=== PATIENT | female | born 1950 | race Asian ===

== ENCOUNTER 2020-08-12 13:41 | Observation (INO) | payer OTHER ==
[2020-08-12] MEDS ORDERED: SODIUM CHLORIDE 0.9% 1000 ML INFUS.BAG IV ONE (14:52)
[2020-08-12] MEDS ORDERED: ONDANSETRON 4 MG/2 ML VIAL IVPUSH ONE (14:54)
[2020-08-12] MEDS ORDERED: ACETAMINOPHEN 1000 MG/100 ML VIAL (NON FORMULARY) IVPB ONE (14:54)
[2020-08-12 15:28] LABS: VENOUS BASE EXCESS -1.7 mmol/L (-2-2); VENOUS PCO2 52.8 mmHg (38-52); VENOUS PH 7.302 (7.310-7.410)
[2020-08-12] MEDS ORDERED: ONDANSETRON 4 MG/2 ML VIAL ONE (15:31)
[2020-08-12] MEDS ORDERED: ACETAMINOPHEN INJECTION 100 ML IVPB ONE (15:31)
[2020-08-12 15:32] LABS: BASO % 0.7 % (0-2.0); EOS % 3.1 % (0-4.5); HEMATOCRIT 36.8 % (32.4-45.2); MCH 25.3 pg (25.7-33.7); MCHC 32.6 g/dl (32.0-36.0); MEAN CELL VOLUME 77.6 fl (80-96); MEAN PLT VOLUME 9.7 fl (7.5-11.1); MONO % 5.6 % (3.8-10.2); NEUT % 61.6 % (42.8-82.8); PLATELET COUNT 250 K/MM3 (134-434); RBC 4.75 M/mm3 (3.60-5.2); RDW 14.7 % (11.6-15.6); WHITE BLOOD COUNT 8.8 K/mm3 (4.0-10.0)
[2020-08-12 15:39] LABS: INR 0.96 (0.83-1.09); PROTHROMBIN TIME (PATIENT) 11.8 SEC (9.7-13.0)
[2020-08-12 15:41] LABS: ACTIVATED PTT 31.9 SECONDS (25.2-36.5)
[2020-08-12 15:51] LABS: CHLORIDE 104 mmol/L (98-107); SODIUM 135 mmol/L (136-145)
[2020-08-12 15:53] LABS: ALBUMIN 3.3 g/dl (3.4-5.0); ANION GAP 6 MMOL/L (8-16); BLOOD UREA NITROGEN 41.2 mg/dL (7-18); CALCIUM 8.4 mg/dL (8.5-10.1); CO2 26 mmol/L (21-32); GLUCOSE,RANDOM 56 mg/dL (74-106)
[2020-08-12 15:56] LABS: SGOT/AST 55 U/L (15-37); SGPT/ALT 21 U/L (13-61)
[2020-08-12 15:57] LABS: CREATININE 1.9 mg/dL (0.55-1.3)
[2020-08-12 15:58] LABS: BILIRUBIN,TOTAL 0.5 mg/dL (0.2-1); TOT PROT 7.6 g/dl (6.4-8.2)
[2020-08-12 15:59] LABS: ALK PHOS 87 U/L (45-117)
[2020-08-12 16:00] LABS: LDH 674 U/L (84-246)
[2020-08-12] MEDS ORDERED: DEXAMETHASONE SOD PHOSPHATE 4 MG/1 ML VIAL IVPUSH ONE (16:27)
[2020-08-12 16:34] LABS: CALCIUM 8.8 mg/dL (8.5-10.1)
[2020-08-12 16:35] LABS: BLOOD UREA NITROGEN 41.2 mg/dL (7-18)
[2020-08-12 16:38] LABS: CREATININE 1.8 mg/dL (0.55-1.3)
[2020-08-12] MEDS ORDERED: DEXAMETHASONE SOD PHOSPHATE 10 MG/1 ML VIAL ONE (16:46)
[2020-08-12 18:55] LABS: EPI CELLS 3 /uL (0-25.1); HYALINE CASTS 0 /uL (0-3.1); PH,URINE 5.5 (5.0-8.0); URINE APPEARANCE CLEAR; URINE BACTERIA 10 /uL (0-1359); URINE BILIRUBIN NEGATIVE (NEGATIVE); URINE COLOR YELLOW; URINE GLUCOSE (UA) NEGATIVE (NEGATIVE); URINE KETONE NEGATIVE (NEGATIVE); URINE LEUK ESTERASE NEGATIVE (NEGATIVE); URINE NITRITE NEGATIVE (NEGATIVE); URINE PROTEIN 2+ (NEGATIVE); URINE RBC 2 /uL (0-23.9); URINE UROBILINOGEN 0.2 mg/dL (0.2-1.0); URINE WBC 4 /uL (0-25.8)
[2020-08-12] MEDS ORDERED: TACROLIMUS 0.5 MG CAPSULE PO ONE (23:20)
[2020-08-12] MEDS ORDERED: SODIUM CHLORIDE 1,000 ML IV SCH (23:45)
[2020-08-13] MEDS: POLYETHYLENE GLYCOL 3350 119 GM BTL PO SCH ×3 (04:08→22:59)
[2020-08-13] MEDS ORDERED: ONDANSETRON 4 MG/2 ML VIAL IVPUSH PRN (04:46)
[2020-08-13] MEDS ORDERED: ASCORBIC ACID 500 MG TABLET (FP) ONE (08:05)
[2020-08-13] MEDS ORDERED: DEXAMETHASONE SOD PHOSPHATE 10 MG/1 ML VIAL ONE (08:05)
[2020-08-13] MEDS ORDERED: amLODIPine BESYLATE 5 MG TABLET (FP) ONE (08:06)
[2020-08-13] MEDS ORDERED: ZINC SULFATE 220 MG CAPSULE (FP) ONE (08:06)
[2020-08-13] MEDS ORDERED: ENOXAPARIN NA (PORCINE) 40 MG/0.4 ML DISP.SYRIN SQ ONE (08:07)
[2020-08-13 08:18] LABS: ALBUMIN 3.4 g/dl (3.4-5.0); CALCIUM 8.4 mg/dL (8.5-10.1)
[2020-08-13 08:19] LABS: BLOOD UREA NITROGEN 45.1 mg/dL (7-18); MAGNESIUM 2.5 mg/dL (1.8-2.4)
[2020-08-13 08:22] LABS: BASO % 0.1 % (0-2.0); EOS % 0.1 % (0-4.5); HEMATOCRIT 35.5 % (32.4-45.2); HEMOGLOBIN 11.6 GM/dL (10.7-15.3); LYMPH % 10.8 % (8-40); MCH 25.4 pg (25.7-33.7); MCHC 32.6 g/dl (32.0-36.0); MEAN CELL VOLUME 77.7 fl (80-96); MEAN PLT VOLUME 10.1 fl (7.5-11.1); PHOSPHOROUS 4.7 mg/dL (2.5-4.9); PLATELET COUNT 212 K/MM3 (134-434); RBC 4.57 M/mm3 (3.60-5.2); RDW 14.6 % (11.6-15.6); WHITE BLOOD COUNT 9.4 K/mm3 (4.0-10.0)
[2020-08-13 08:23] LABS: BILIRUBIN,TOTAL 0.4 mg/dL (0.2-1); TOT PROT 7.2 g/dl (6.4-8.2)
[2020-08-13] MEDS: INSULIN SLIDING SCALE (NOVOLOG) 1 VIAL SQ SCH ×4 (08:36→23:00)
[2020-08-13] MEDS: ENOXAPARIN NA (PORCINE) 40 MG/0.4 ML DISP.SYRIN SQ SCH (09:49)
[2020-08-13] MEDS: amLODIPine BESYLATE 5 MG TABLET (FP) PO SCH (09:50)
[2020-08-13] MEDS: ZINC SULFATE 220 MG CAPSULE (FP) PO SCH (09:50)
[2020-08-13] MEDS: ASCORBIC ACID 500 MG TABLET (FP) PO SCH (09:50)
[2020-08-13] MEDS ORDERED: amLODIPine BESYLATE 5 MG TABLET (FP) PO SCH (10:00)
[2020-08-13] MEDS ORDERED: DEXAMETHASONE SOD PHOSPHATE 4 MG/1 ML VIAL IVPUSH SCH (10:00)
[2020-08-13] MEDS ORDERED: TACROLIMUS 0.5 MG CAPSULE PO SCH ×2 (10:00)
[2020-08-13] MEDS ORDERED: CHOLECALCIFEROL (VIT D3) 400 UNIT (10 MCG) TABLET PO SCH (10:00)
[2020-08-13] MEDS ORDERED: DEXAMETHASONE SOD PHOSPHATE 20 MG/5 ML VIAL IVPB SCH (10:00)
[2020-08-13] MEDS ORDERED: FLUDROCORTISONE ACETATE 0.1 MG TABLET (FP) PO SCH (10:00)
[2020-08-13] MEDS ORDERED: ALBUTEROL SO4 HFA INHALER IH PRN (12:59)
[2020-08-13 13:29] LABS: N-TERMINAL BNP 701.9 pg/ml (5-125)
[2020-08-13] MEDS: SODIUM CHLORIDE 1,000 ML IV SCH (16:06)
[2020-08-13 20:50] VITALS: BMI 33.2
[2020-08-13] MEDS ORDERED: PT OWN MED DRAWER 7, Y5N ONE (22:53)
[2020-08-13] MEDS: ATORVASTATIN CA 20 MG TABLET (FP) PO SCH (22:59)
[2020-08-13] MEDS: INSULIN (LEVEMIR) 100 UNITS/ML UNITS SQ SCH (22:59)
[2020-08-14] MEDS: TACROLIMUS 0.5 MG CAPSULE PO SCH ×3 (02:58→21:05)
[2020-08-14] MEDS: SODIUM CHLORIDE 1,000 ML IV SCH ×2 (02:59→21:05)
[2020-08-14] MEDS: INSULIN SLIDING SCALE (NOVOLOG) 1 VIAL SQ SCH ×4 (06:35→21:06)
[2020-08-14] MEDS: LEVOTHYROXINE NA 75 MCG TABLET (FP) PO SCH (06:36)
[2020-08-14] MEDS: INSULIN (LEVEMIR) 100 UNITS/ML UNITS SQ SCH ×2 (06:36→21:05)
[2020-08-14 08:55] LABS: HEMATOCRIT 32.9 % (32.4-45.2); HEMOGLOBIN 10.7 GM/dL (10.7-15.3); MCHC 32.5 g/dl (32.0-36.0); MEAN CELL VOLUME 77.1 fl (80-96); MEAN PLT VOLUME 10.1 fl (7.5-11.1); PLATELET COUNT 218 K/MM3 (134-434); RBC 4.26 M/mm3 (3.60-5.2); RDW 14.6 % (11.6-15.6); WHITE BLOOD COUNT 12.4 K/mm3 (4.0-10.0)
[2020-08-14 09:32] LABS: ALBUMIN 3.3 g/dl (3.4-5.0); BLOOD UREA NITROGEN 43.1 mg/dL (7-18); CALCIUM 8.1 mg/dL (8.5-10.1)
[2020-08-14 09:35] LABS: CREATININE 1.6 mg/dL (0.55-1.3)
[2020-08-14 09:37] LABS: BILIRUBIN,TOTAL 0.6 mg/dL (0.2-1)
[2020-08-14 09:40] LABS: TOT PROT 6.6 g/dl (6.4-8.2)
[2020-08-14] MEDS: LORATADINE 10 MG TABLET PO SCH (10:15)
[2020-08-14] MEDS: amLODIPine BESYLATE 5 MG TABLET (FP) PO SCH (10:15)
[2020-08-14] MEDS: ENOXAPARIN NA (PORCINE) 40 MG/0.4 ML DISP.SYRIN SQ SCH (10:15)
[2020-08-14] MEDS: ZINC SULFATE 220 MG CAPSULE (FP) PO SCH (10:15)
[2020-08-14] MEDS: FERROUS SO4 325 MG TABLET (FP) PO SCH (10:15)
[2020-08-14] MEDS: ASCORBIC ACID 500 MG TABLET (FP) PO SCH (10:15)
[2020-08-14] MEDS: POLYETHYLENE GLYCOL 3350 119 GM BTL PO SCH ×2 (10:22→21:04)
[2020-08-14] MEDS ORDERED: ACETAMINOPHEN 325 MG TABLET (FP) PO ONE (19:53)
[2020-08-14] MEDS ORDERED: PT OWN MED DRAWER 7, Y5N ONE (20:53)
[2020-08-14] MEDS: ATORVASTATIN CA 20 MG TABLET (FP) PO SCH (21:04)
[2020-08-15] MEDS: LEVOTHYROXINE NA 75 MCG TABLET (FP) PO SCH (06:33)
[2020-08-15] MEDS: INSULIN SLIDING SCALE (NOVOLOG) 1 VIAL SQ SCH ×2 (06:33→10:32)
[2020-08-15 06:38] VITALS: BP 124/62; PULSE 57; TEMP 97.9
[2020-08-15] MEDS ORDERED: INSULIN (LEVEMIR) 100 UNITS/ML UNITS SQ SCH (07:00)
[2020-08-15 08:20] LABS: BASO % 0.8 % (0-2.0); EOS % 1.6 % (0-4.5); HEMATOCRIT 34.3 % (32.4-45.2); HEMOGLOBIN 11.2 GM/dL (10.7-15.3); LYMPH % 35.7 % (8-40); MCH 25.4 pg (25.7-33.7); MCHC 32.7 g/dl (32.0-36.0); MEAN CELL VOLUME 77.6 fl (80-96); MEAN PLT VOLUME 9.9 fl (7.5-11.1); MONO % 6.5 % (3.8-10.2); NEUT % 55.4 % (42.8-82.8); PLATELET COUNT 209 K/MM3 (134-434); RBC 4.42 M/mm3 (3.60-5.2); RDW 14.8 % (11.6-15.6); WHITE BLOOD COUNT 8.9 K/mm3 (4.0-10.0)
[2020-08-15 08:33] LABS: ALBUMIN 3.1 g/dl (3.4-5.0); BLOOD UREA NITROGEN 39.5 mg/dL (7-18); CALCIUM 8.3 mg/dL (8.5-10.1)
[2020-08-15 08:34] LABS: MAGNESIUM 2.1 mg/dL (1.8-2.4)
[2020-08-15 08:36] LABS: CREATININE 1.5 mg/dL (0.55-1.3); PHOSPHOROUS 4.1 mg/dL (2.5-4.9)
[2020-08-15 08:37] LABS: BILIRUBIN,TOTAL 0.5 mg/dL (0.2-1); TOT PROT 6.5 g/dl (6.4-8.2)
[2020-08-15] MEDS ORDERED: DOCUSATE SODIUM 100 MG CAPSULE (FP) PO ONE (09:44)
[2020-08-15] MEDS ORDERED: SENNOSIDES 8.6MG TABLET (FP) PO SCH (10:00)
[2020-08-15] MEDS: amLODIPine BESYLATE 5 MG TABLET (FP) PO SCH (10:02)
[2020-08-15] MEDS: ZINC SULFATE 220 MG CAPSULE (FP) PO SCH (10:02)
[2020-08-15] MEDS: LORATADINE 10 MG TABLET PO SCH (10:02)
[2020-08-15] MEDS: ENOXAPARIN NA (PORCINE) 40 MG/0.4 ML DISP.SYRIN SQ SCH (10:02)
[2020-08-15] MEDS: FERROUS SO4 325 MG TABLET (FP) PO SCH (10:02)
[2020-08-15] MEDS: POLYETHYLENE GLYCOL 3350 119 GM BTL PO SCH (10:02)
[2020-08-15] MEDS: TACROLIMUS 0.5 MG CAPSULE PO SCH (10:03)
[2020-08-15] MEDS: ASCORBIC ACID 500 MG TABLET (FP) PO SCH (10:56)
== END 2020-08-15 13:39 | disposition home or self-care (01) ==
LOC: JER 13:41 → INTOOBSV 18:25 → JERBED 18:25 → J7W 08-13 19:05
PROVIDERS: ADMIT Family Medicine
PROC: 3E033NZ Introduction of Analgesics, Hypnotics, Sedatives into Peripheral Vein, Percutaneous Approach (ICD-10-PCS; principal; 2020-08-12)
PROC: 3E033GC Introduction of Other Therapeutic Substance into Peripheral Vein, Percutaneous Approach (ICD-10-PCS; 2020-08-12)
PROC: 3E013VG Introduction of Insulin into Subcutaneous Tissue, Percutaneous Approach (ICD-10-PCS; 2020-08-12)
PROC: 3E023GC Introduction of Other Therapeutic Substance into Muscle, Percutaneous Approach (ICD-10-PCS; 2020-08-12)
PROC: 3E0337Z Introduction of Electrolytic and Water Balance Substance into Peripheral Vein, Percutaneous Approach (ICD-10-PCS; 2020-08-12)
DX: I13.10 Hypertensive heart and chronic kidney disease without heart failure, with stage 1 through stage 4 chronic kidney disease, or unspecified chronic kidney disease (principal); E11.22 Type 2 diabetes mellitus with diabetic chronic kidney disease; N17.9 Acute kidney failure, unspecified; J96.91 Respiratory failure, unspecified with hypoxia; E78.5 Hyperlipidemia, unspecified; Z94.4 Liver transplant status; B19.20 Unspecified viral hepatitis C without hepatic coma; E11.21 Type 2 diabetes mellitus with diabetic nephropathy; K21.9 Gastro-esophageal reflux disease without esophagitis; Z79.4 Long term (current) use of insulin; N18.9 Chronic kidney disease, unspecified; R53.1 Weakness; E66.9 Obesity, unspecified; Z68.33 Body mass index [BMI] 33.0-33.9, adult; M54.9 Dorsalgia, unspecified; R05 Cough; Z20.822 Contact with and (suspected) exposure to COVID-19; Z29.9 Encounter for prophylactic measures, unspecified
CPT/HCPCS: 36415; 71045-TC-FY; 76775-TC; 80048; 80053; 81003; 82436; 82550; 82553; 82570; 82728; 82803; 82962; 83605; 83615; 83735; 83880; 84100; 84133; 84156; 84300; 84484; 85025; 85027; 85610; 85730; 86140; 86769; 87040; 87086; 87804; 93306-TC; 94761; 96361; 96372; 96374; 96375; 96376; 99285-25; C9803; G0378; J0131; U0003; U0005

== ENCOUNTER 2022-05-24 08:40 | Emergency (ER) | payer OTHER ==
[2022-05-24 09:08] VITALS: BP 133/69; PULSE 78; RESP 18; TEMP 97.9; BMI 32.3
[2022-05-24] MEDS ORDERED: ACETAMINOPHEN 500 MG TABLET (FP) PO ONE (11:02)
[2022-05-24] MEDS ORDERED: LIDOCAINE 5% TOPICAL PATCH TP ONE (11:02)
[2022-05-24] MEDS ORDERED: ACETAMINOPHEN 325 MG TABLET (FP) ONE (11:08)
[2022-05-24] MEDS ORDERED: LIDOCAINE 5% TOPICAL PATCH ONE (11:08)
[2022-05-24 11:51] LABS: BASO % 0.6 % (0-2.0); EOS % 6.7 % (0-4.5); HEMATOCRIT 35.4 % (32.4-45.2); HEMOGLOBIN 11.4 GM/dL (10.7-15.3); LYMPH % 32.4 % (8-40); MCH 24.8 pg (25.7-33.7); MCHC 32.1 g/dl (32.0-36.0); MEAN CELL VOLUME 77.1 fl (80-96); MEAN PLT VOLUME 8.7 fl (7.5-11.1); MONO % 7.5 % (3.8-10.2); NEUT % 52.8 % (42.8-82.8); PLATELET COUNT 292 10^3/uL (134-434); RBC 4.59 M/mm3 (3.60-5.2); RDW 14.8 % (11.6-15.6); WHITE BLOOD COUNT 7.4 K/mm3 (4.0-10.0)
[2022-05-24 12:08] LABS: ALBUMIN 3.5 g/dl (3.4-5.0); BLOOD UREA NITROGEN 38.3 mg/dL (7-18); CALCIUM 8.5 mg/dL (8.5-10.1); MAGNESIUM 2.4 mg/dL (1.8-2.4)
[2022-05-24 12:10] LABS: INR 0.97 (0.83-1.09); PROTHROMBIN TIME (PATIENT) 11.1 SEC (9.7-13.0)
[2022-05-24 12:12] LABS: CREATININE 1.6 mg/dL (0.55-1.3)
[2022-05-24 12:13] LABS: ACTIVATED PTT 33.1 SECONDS (25.2-36.5); BILIRUBIN,TOTAL 0.3 mg/dL (0.2-1); EPI CELLS 5 /uL (0-25.1); HYALINE CASTS 0 /uL (0-3.1); TOT PROT 7.7 g/dl (6.4-8.2); URINE APPEARANCE CLEAR; URINE BACTERIA 22 /uL (0-1359); URINE BILIRUBIN NEGATIVE (NEGATIVE); URINE COLOR YELLOW; URINE GLUCOSE (UA) NEGATIVE (NEGATIVE); URINE KETONE NEGATIVE (NEGATIVE); URINE LEUK ESTERASE NEGATIVE (NEGATIVE); URINE NITRITE NEGATIVE (NEGATIVE); URINE PROTEIN 2+ (NEGATIVE); URINE RBC 14 /uL (0-23.9); URINE UROBILINOGEN 0.2 mg/dL (0.2-1.0); URINE WBC 6 /uL (0-25.8)
[2022-05-24] MEDS ORDERED: SODIUM CHLORIDE 0.9% 500 ML INFUS.BAG IV ONE (12:55)
[2022-05-24] MEDS ORDERED: LIDOCAINE PATCH REMOVAL MC SCH (22:00)
== END 2022-05-24 15:08 | disposition home or self-care (01) ==
LOC: JER 08:40
DX: M54.6 Pain in thoracic spine (principal)
CPT/HCPCS: 0241U-QW; 36415; 71046-TC-FY; 74177-TC; 80053; 81003; 83735; 84484; 85025; 85610; 85730; 86850; 86900; 86901; 87086; 93005; 93010; 99285-25; Q9967

== ENCOUNTER 2022-10-15 08:22 | Emergency (ER) | payer OTHER ==
[2022-10-15 08:30] VITALS: BMI 35.5
[2022-10-15] MEDS ORDERED: SODIUM CHLORIDE 1,000 ML IV STA (09:34)
[2022-10-15 11:38] LABS: BASO % 0.3 % (0-2.0); EOS % 4.6 % (0-4.5); HEMATOCRIT 34.7 % (32.4-45.2); HEMOGLOBIN 11.3 GM/dL (10.7-15.3); LYMPH % 29.6 % (8-40); MCH 24.6 pg (25.7-33.7); MCHC 32.5 g/dl (32.0-36.0); MEAN CELL VOLUME 75.9 fl (80-96); MEAN PLT VOLUME 9.2 fl (7.5-11.1); NEUT % 58.5 % (42.8-82.8); PLATELET COUNT 245 10^3/uL (134-434); RBC 4.57 M/mm3 (3.60-5.2); RDW 14.8 % (11.6-15.6); WHITE BLOOD COUNT 7.2 K/mm3 (4.0-10.0)
[2022-10-15 12:01] LABS: POTASSIUM 5.1 mmol/L (3.5-5.1)
[2022-10-15 12:04] LABS: CALCIUM 8.6 mg/dL (8.5-10.1)
[2022-10-15 12:05] LABS: ALBUMIN 3.2 g/dl (3.4-5.0); BLOOD UREA NITROGEN 35.8 mg/dL (7-18); MAGNESIUM 2.6 mg/dL (1.8-2.4)
[2022-10-15 12:08] LABS: CREATININE 1.7 mg/dL (0.55-1.3)
[2022-10-15 12:09] LABS: TOT PROT 7.3 g/dl (6.4-8.2)
[2022-10-15 12:10] LABS: BILIRUBIN,TOTAL 0.3 mg/dL (0.2-1)
[2022-10-15 13:04] LABS: EPI CELLS 4 /uL (0-25.1); HYALINE CASTS 0 /uL (0-3.1); PH,URINE 5.5 (5.0-8.0); URINE APPEARANCE CLEAR; URINE BACTERIA 5 /uL (0-1359); URINE BILIRUBIN NEGATIVE (NEGATIVE); URINE COLOR YELLOW; URINE GLUCOSE (UA) 2+ (NEGATIVE); URINE KETONE NEGATIVE (NEGATIVE); URINE LEUK ESTERASE NEGATIVE (NEGATIVE); URINE NITRITE NEGATIVE (NEGATIVE); URINE PROTEIN 3+ (NEGATIVE); URINE RBC 16 /uL (0-23.9); URINE UROBILINOGEN 0.2 mg/dL (0.2-1.0); URINE WBC 7 /uL (0-25.8)
[2022-10-15 14:17] VITALS: BP 128/68; PULSE 71; RESP 18; TEMP 98
== END 2022-10-15 14:17 | disposition home or self-care (01) ==
LOC: JER 08:22
PROC: 3E0337Z Introduction of Electrolytic and Water Balance Substance into Peripheral Vein, Percutaneous Approach (ICD-10-PCS; principal; 2022-10-15)
DX: R05.9 Cough, unspecified (principal); R07.0 Pain in throat; J02.9 Acute pharyngitis, unspecified
CPT/HCPCS: 36415; 71045-TC-FY; 80053; 81003; 83735; 84484; 85025; 87070; 93005; 93010; 99285-25

== ENCOUNTER 2022-11-18 07:17 | Observation (INO) | payer OTHER ==
[2022-11-18] MEDS ORDERED: ACETAMINOPHEN 1000 MG/100 ML BAG IVPB ONE (08:03)
[2022-11-18] MEDS ORDERED: ACETAMINOPHEN INJECTION 100 ML IVPB ONE (08:13)
[2022-11-18] MEDS ORDERED: MAG HYDROX/AL HYDROX/SIMETH 30 ML UNIT-DOSE CUP PO ONE (08:15)
[2022-11-18] MEDS ORDERED: FAMOTIDINE 20 MG/50 ML IVPB 20 MG/50 ML MG IVPB ONE ×2 (08:15→08:34)
[2022-11-18] MEDS ORDERED: MAG HYDROX/AL HYDROX/SIMETH 30 ML UNIT-DOSE CUP ONE (08:34)
[2022-11-18 08:45] LABS: BASO % 0.8 % (0-2.0); EOS % 3.3 % (0-4.5); HEMATOCRIT 35.9 % (32.4-45.2); HEMOGLOBIN 11.5 GM/dL (10.7-15.3); LYMPH % 26.6 % (8-40); MCH 24.4 pg (25.7-33.7); MEAN CELL VOLUME 76.2 fl (80-96); MEAN PLT VOLUME 9.1 fl (7.5-11.1); MONO % 5.4 % (3.8-10.2); NEUT % 63.9 % (42.8-82.8); PLATELET COUNT 253 10^3/uL (134-434); RBC 4.71 M/mm3 (3.60-5.2); RDW 15.3 % (11.6-15.6)
[2022-11-18 08:53] LABS: INR 1.02 (0.83-1.09); PROTHROMBIN TIME (PATIENT) 11.8 SEC (9.7-13.0)
[2022-11-18 08:56] LABS: ACTIVATED PTT 34.1 SECONDS (25.2-36.5)
[2022-11-18 09:05] LABS: POTASSIUM 5.4 mmol/L (3.5-5.1)
[2022-11-18 09:08] LABS: ALBUMIN 3.7 g/dl (3.4-5.0); BLOOD UREA NITROGEN 60.5 mg/dL (7-18); CALCIUM 8.7 mg/dL (8.5-10.1)
[2022-11-18 09:13] LABS: BILIRUBIN,TOTAL 0.4 mg/dL (0.2-1); TOT PROT 7.7 g/dl (6.4-8.2)
[2022-11-18] MEDS ORDERED: SODIUM CHLORIDE 1,000 ML IV SCH (11:15)
[2022-11-18] MEDS ORDERED: ACETAMINOPHEN 325 MG TABLET (FP) PO PRN (11:45)
[2022-11-18] MEDS ORDERED: HEPARIN NA (PORCINE) 5,000 UNITS/ML 1ML VIAL SQ SCH (14:00)
[2022-11-18] MEDS: APIXABAN 2.5 MG TABLET PO SCH ×2 (14:09→22:04)
[2022-11-18] MEDS: TACROLIMUS 0.5 MG CAPSULE PO SCH ×2 (14:09→22:04)
[2022-11-18] MEDS ORDERED: BENZONATATE 100 MG CAPSULE PO PRN (14:45)
[2022-11-18 15:01] LABS: N-TERMINAL BNP 631.9 pg/ml (5-125)
[2022-11-18] MEDS ORDERED: SODIUM ZIRCONIUM CYCLOSILICATE (LOKELMA) 5 GM PACKET PO SCH (15:30)
[2022-11-18 17:01] VITALS: BMI 47.0
[2022-11-18] MEDS: INSULIN (NOVOLOG) ASPART 100 UNITS/ML 10ML VIAL SQ SCH ×2 (17:41→22:04)
[2022-11-18 19:57] LABS: EPI CELLS 3 /uL (0-25.1); HYALINE CASTS 1 /uL (0-3.1); URINE APPEARANCE CLEAR; URINE BACTERIA 1 /uL (0-1359); URINE BILIRUBIN NEGATIVE (NEGATIVE); URINE COLOR YELLOW; URINE GLUCOSE (UA) 2+ (NEGATIVE); URINE KETONE NEGATIVE (NEGATIVE); URINE LEUK ESTERASE NEGATIVE (NEGATIVE); URINE NITRITE NEGATIVE (NEGATIVE); URINE PROTEIN 2+ (NEGATIVE); URINE RBC 4 /uL (0-23.9); URINE UROBILINOGEN 0.2 mg/dL (0.2-1.0); URINE WBC 6 /uL (0-25.8)
[2022-11-18] MEDS ORDERED: ATORVASTATIN CA 20 MG TABLET (FP) PO SCH (22:00)
[2022-11-18] MEDS ORDERED: INSULIN (LEVEMIR) 100 UNITS/ML UNITS SQ SCH (22:00)
[2022-11-18] MEDS ORDERED: INSULIN (LEVEMIR) 100 UNITS/ML UNITS SQ ONE (22:02)
[2022-11-18] MEDS ORDERED: INSULIN (NOVOLOG) ASPART 100 UNITS/ML 10ML VIAL ONE (22:03)
[2022-11-18 22:08] LABS: POTASSIUM 4.2 mmol/L (3.5-5.1)
[2022-11-18 22:10] LABS: CALCIUM 8.1 mg/dL (8.5-10.1)
[2022-11-18 22:11] LABS: ALBUMIN 3.2 g/dl (3.4-5.0)
[2022-11-18 22:14] LABS: CREATININE 1.9 mg/dL (0.55-1.3)
[2022-11-18 22:15] LABS: TOT PROT 6.9 g/dl (6.4-8.2)
[2022-11-18 22:16] LABS: BILIRUBIN,TOTAL 0.1 mg/dL (0.2-1)
[2022-11-19] MEDS: INSULIN (NOVOLOG) ASPART 100 UNITS/ML 10ML VIAL SQ SCH ×3 (06:28→16:54)
[2022-11-19] MEDS ORDERED: LEVOTHYROXINE NA 88 MCG TABLET (FP) PO SCH (07:00)
[2022-11-19 07:12] LABS: BASO % 0.4 % (0-2.0); EOS % 4.8 % (0-4.5); HEMATOCRIT 34.6 % (32.4-45.2); HEMOGLOBIN 10.8 GM/dL (10.7-15.3); LYMPH % 23.5 % (8-40); MCH 24.2 pg (25.7-33.7); MCHC 31.3 g/dl (32.0-36.0); MEAN CELL VOLUME 77.3 fl (80-96); MEAN PLT VOLUME 9.7 fl (7.5-11.1); MONO % 6.5 % (3.8-10.2); NEUT % 64.8 % (42.8-82.8); PLATELET COUNT 214 10^3/uL (134-434); RBC 4.48 M/mm3 (3.60-5.2); RDW 15.1 % (11.6-15.6); WHITE BLOOD COUNT 7.3 K/mm3 (4.0-10.0)
[2022-11-19 07:23] LABS: POTASSIUM 4.4 mmol/L (3.5-5.1)
[2022-11-19 07:26] LABS: BLOOD UREA NITROGEN 47.7 mg/dL (7-18); CALCIUM 8.2 mg/dL (8.5-10.1)
[2022-11-19 07:27] LABS: MAGNESIUM 2.4 mg/dL (1.8-2.4)
[2022-11-19 07:29] LABS: CREATININE 1.7 mg/dL (0.55-1.3); PHOSPHOROUS 4.5 mg/dL (2.5-4.9)
[2022-11-19 07:31] LABS: BILIRUBIN,TOTAL 0.3 mg/dL (0.2-1); TOT PROT 6.3 g/dl (6.4-8.2)
[2022-11-19] MEDS ORDERED: ALBUTEROL SO4 2.5/IPRATROPIUM 0.5 INH SOL 3 ML VIAL.NEB. NEB PRN (08:18)
[2022-11-19] MEDS ORDERED: guaiFENesin/CODEINE 5 ML UNIT-DOSE CUPS PO PRN ×2 (08:47→12:39)
[2022-11-19] MEDS: APIXABAN 2.5 MG TABLET PO SCH (09:57)
[2022-11-19] MEDS: TACROLIMUS 0.5 MG CAPSULE PO SCH (09:57)
[2022-11-19] MEDS ORDERED: amLODIPine BESYLATE 5 MG TABLET (FP) PO SCH (10:00)
[2022-11-19] MEDS ORDERED: FAMOTIDINE 20 MG TABLET PO SCH ×2 (10:00→12:45)
[2022-11-19 12:30] VITALS: RESP 18
[2022-11-19] MEDS ORDERED: PANTOPRAZOLE 40 MG TABLET PO SCH (14:15)
[2022-11-19 14:19] VITALS: BP 137/61; TEMP 98.9
[2022-11-19 16:40] VITALS: PULSE 89
== END 2022-11-19 18:11 | disposition home or self-care (01) ==
LOC: JER 07:17 → JERBED 09:50 → UNDOADMOB 09:50 → JERBED 10:55 → J4W 10:55 → OBSVTOIN 11:10 → INTOOBSV 11:10 → JERBED 11:49 → J4W 11:49
PROVIDERS: ADMIT Internal Medicine; ATTEND Internal Medicine
PROC: 3E033GC Introduction of Other Therapeutic Substance into Peripheral Vein, Percutaneous Approach (ICD-10-PCS; principal; 2022-11-18)
PROC: 3E013VG Introduction of Insulin into Subcutaneous Tissue, Percutaneous Approach (ICD-10-PCS; 2022-11-18)
PROC: 3E0337Z Introduction of Electrolytic and Water Balance Substance into Peripheral Vein, Percutaneous Approach (ICD-10-PCS; 2022-11-18)
DX: R07.9 Chest pain, unspecified (principal); R05.9 Cough, unspecified; K21.9 Gastro-esophageal reflux disease without esophagitis; I13.11 Hypertensive heart and chronic kidney disease without heart failure, with stage 5 chronic kidney disease, or end stage renal disease; E11.22 Type 2 diabetes mellitus with diabetic chronic kidney disease; N18.6 End stage renal disease; E78.5 Hyperlipidemia, unspecified; Z86.19 Personal history of other infectious and parasitic diseases; E03.9 Hypothyroidism, unspecified; Z94.4 Liver transplant status; E66.01 Morbid (severe) obesity due to excess calories; Z68.42 Body mass index [BMI] 45.0-49.9, adult
CPT/HCPCS: 0241U-QW; 36415; 71046-TC-FY; 71250-TC; 80053; 81003; 82962; 83690; 83735; 83880; 84100; 84484; 85025; 85379; 85610; 85730; 93005; 93010; 93306-TC; 94761; 96361; 96365; 96372; 96375; 97116-GP; 97161-GP; 99285-25; G0378

== ENCOUNTER 2023-03-19 07:14 | Emergency (ER) | payer OTHER ==
[2023-03-19 07:31] VITALS: RESP 18; BMI 47.8
[2023-03-19 09:20] VITALS: BP 132/52; PULSE 63; TEMP 98.1
[2023-03-19 09:30] LABS: BASO % 0.5 % (0-2.0); EOS % 0.9 % (0-4.5); HEMATOCRIT 37.9 % (32.4-45.2); HEMOGLOBIN 12.4 GM/dL (10.7-15.3); LYMPH % 27.4 % (8-40); MCH 24.8 pg (25.7-33.7); MCHC 32.8 g/dl (32.0-36.0); MEAN CELL VOLUME 75.5 fl (80-96); MEAN PLT VOLUME 8.6 fl (7.5-11.1); MONO % 6.2 % (3.8-10.2); PLATELET COUNT 353 10^3/uL (134-434); RBC 5.02 M/mm3 (3.60-5.2); RDW 15.7 % (11.6-15.6); WHITE BLOOD COUNT 10.8 K/mm3 (4.0-10.0)
[2023-03-19 09:49] LABS: POTASSIUM 5.7 mmol/L (3.5-5.1)
[2023-03-19 09:52] LABS: ALBUMIN 3.2 g/dl (3.4-5.0); BLOOD UREA NITROGEN 44.3 mg/dL (7-18); CALCIUM 7.9 mg/dL (8.5-10.1)
[2023-03-19 09:55] LABS: CREATININE 1.6 mg/dL (0.55-1.3)
[2023-03-19 09:56] LABS: TOT PROT 7.2 g/dl (6.4-8.2)
[2023-03-19 09:57] LABS: BILIRUBIN,TOTAL 0.3 mg/dL (0.2-1)
== END 2023-03-19 12:11 | disposition home or self-care (01) ==
LOC: JER 07:14
DX: R05.9 Cough, unspecified (principal); M54.6 Pain in thoracic spine; R10.10 Upper abdominal pain, unspecified; R09.82 Postnasal drip; Z20.822 Contact with and (suspected) exposure to COVID-19
CPT/HCPCS: 0241U-QW; 36415; 71045-TC-FY; 80053; 84484; 85025; 93005; 93010; 99285-25

== ENCOUNTER 2023-08-20 08:12 | Emergency (ER) | payer OTHER ==
[2023-08-20 08:21] VITALS: PULSE 60; BMI 48.8
[2023-08-20 09:13] LABS: BASO % 1.1 % (0-2.0); EOS % 4.1 % (0-4.5); HEMATOCRIT 36.2 % (32.4-45.2); HEMOGLOBIN 11.5 GM/dL (10.7-15.3); LYMPH % 34.4 % (8-40); MCH 25.1 pg (25.7-33.7); MCHC 31.8 g/dl (32.0-36.0); MEAN CELL VOLUME 79.1 fl (80-96); MEAN PLT VOLUME 9.7 fl (7.5-11.1); MONO % 6.1 % (3.8-10.2); NEUT % 54.3 % (42.8-82.8); PLATELET COUNT 201 10^3/uL (134-434); RBC 4.58 M/mm3 (3.60-5.2); RDW 14.6 % (11.6-15.6); WHITE BLOOD COUNT 7.5 K/mm3 (4.0-10.0)
[2023-08-20 09:25] LABS: INR 0.94 (0.83-1.09); PROTHROMBIN TIME (PATIENT) 10.9 SEC (9.7-13.0)
[2023-08-20 09:28] LABS: ACTIVATED PTT 30.9 SECONDS (25.2-36.5)
[2023-08-20 09:33] LABS: CALCIUM 8.9 mg/dL (8.5-10.1)
[2023-08-20 09:34] LABS: ALBUMIN 3.4 g/dl (3.4-5.0); BLOOD UREA NITROGEN 43.5 mg/dL (7-18)
[2023-08-20 09:37] LABS: CREATININE 2.1 mg/dL (0.55-1.3)
[2023-08-20 09:38] LABS: TOT PROT 6.9 g/dl (6.4-8.2)
[2023-08-20 09:39] LABS: BILIRUBIN,TOTAL 0.2 mg/dL (0.2-1)
[2023-08-20] MEDS ORDERED: MAG HYDROX/AL HYDROX/SIMETH 30 ML UNIT-DOSE CUP ONE (11:44)
[2023-08-20] MEDS ORDERED: FAMOTIDINE 20 MG/50 ML IVPB 20 MG/50 ML MG IVPB ONE (11:44)
[2023-08-20] MEDS ORDERED: ONDANSETRON 4 MG/2 ML VIAL ONE (11:44)
[2023-08-20] MEDS: FAMOTIDINE 20 MG/50 ML IVPB 20 MG/50 ML MG IVPB ONE (11:57)
[2023-08-20] MEDS: MAG HYDROX/AL HYDROX/SIMETH 30 ML UNIT-DOSE CUP PO ONE (11:57)
[2023-08-20] MEDS: SODIUM CHLORIDE 0.9% 500 ML INFUS.BAG IV ONE (11:58)
[2023-08-20] MEDS: ONDANSETRON 4 MG/2 ML VIAL IVPUSH ONE (11:59)
[2023-08-20 12:51] VITALS: BP 127/59; RESP 15; TEMP 97.7
== END 2023-08-20 13:03 | disposition home or self-care (01) ==
LOC: JER 08:12
PROC: 3E033GC Introduction of Other Therapeutic Substance into Peripheral Vein, Percutaneous Approach (ICD-10-PCS; principal; 2023-08-20)
PROC: 3E033GC Introduction of Other Therapeutic Substance into Peripheral Vein, Percutaneous Approach (ICD-10-PCS; 2023-08-20)
DX: R10.13 Epigastric pain (principal); R05.9 Cough, unspecified; K76.89 Other specified diseases of liver
CPT/HCPCS: 0241U-QW; 36415; 71045-TC-FY; 74176-TC; 76705-TC; 80053; 84484; 85025; 85610; 85730; 93005; 93010; 99285-25

== ENCOUNTER 2023-09-21 09:42 | Emergency (ER) | payer OTHER ==
[2023-09-21 09:52] VITALS: BP 116/69; PULSE 64; RESP 18; TEMP 98; BMI 32.2
[2023-09-21] MEDS ORDERED: ACETAMINOPHEN 500 MG TABLET (FP) ONE (11:04)
[2023-09-21] MEDS: ACETAMINOPHEN 500 MG TABLET (FP) PO ONE (11:05)
== END 2023-09-21 13:28 | disposition home or self-care (01) ==
LOC: JERFT 09:42
DX: M25.561 Pain in right knee (principal)
CPT/HCPCS: 73564-TC-RT-FY; 99283-25

== ENCOUNTER 2024-02-14 11:28 | Observation (INO) | payer OTHER ==
[2024-02-14] MEDS ORDERED: ONDANSETRON 4 MG/2 ML VIAL ONE (12:49)
[2024-02-14] MEDS ORDERED: ACETAMINOPHEN INJECTION 100 ML ONE (12:49)
[2024-02-14] MEDS: ACETAMINOPHEN 1000 MG/100 ML BAG IVPB ONE (13:24)
[2024-02-14] MEDS: SODIUM CHLORIDE 0.9% 500 ML INFUS.BAG IV ONE ×2 (13:26→17:23)
[2024-02-14] MEDS: ONDANSETRON 4 MG/2 ML VIAL IVPUSH ONE (13:26)
[2024-02-14 13:31] LABS: BASO % 0.5 % (0-2.0); EOS % 0.8 % (0-4.5); HEMATOCRIT 39.6 % (32.4-45.2); HEMOGLOBIN 12.5 GM/dL (10.7-15.3); LYMPH % 15.7 % (8-40); MCH 23.3 pg (25.7-33.7); MCHC 31.5 g/dl (32.0-36.0); MEAN PLT VOLUME 8.9 fl (7.5-11.1); MONO % 3.6 % (3.8-10.2); NEUT % 79.4 % (42.8-82.8); PLATELET COUNT 322 10^3/uL (134-434); RBC 5.36 M/mm3 (3.60-5.2); RDW 17.2 % (11.6-15.6); WHITE BLOOD COUNT 10.2 K/mm3 (4.0-10.0)
[2024-02-14 14:56] LABS: POTASSIUM 5.7 mmol/L (3.5-5.1)
[2024-02-14 15:04] LABS: ALBUMIN 3.4 g/dl (3.4-5.0)
[2024-02-14 15:07] LABS: BILIRUBIN,TOTAL 0.3 mg/dL (0.2-1); TOT PROT 7.7 g/dl (6.4-8.2)
[2024-02-14 15:08] LABS: CREATININE 1.5 mg/dL (0.55-1.3)
[2024-02-14 15:13] LABS: EPI CELLS 8 /uL (0-25.1); HYALINE CASTS 0 /uL (0-3.1); PH,URINE 5.5 (5.0-8.0); URINE APPEARANCE CLEAR; URINE BACTERIA 42 /uL (0-1359); URINE BILIRUBIN NEGATIVE (NEGATIVE); URINE COLOR YELLOW; URINE GLUCOSE (UA) 3+ (NEGATIVE); URINE KETONE NEGATIVE (NEGATIVE); URINE LEUK ESTERASE NEGATIVE (NEGATIVE); URINE NITRITE NEGATIVE (NEGATIVE); URINE PROTEIN 3+ (NEGATIVE); URINE RBC 31 /uL (0-23.9); URINE UROBILINOGEN 0.2 mg/dL (0.2-1.0); URINE WBC 31 /uL (0-25.8)
[2024-02-14] MEDS ORDERED: SODIUM ZIRCONIUM CYCLOSILICATE (LOKELMA) 10 GM PACKET ONE (15:53)
[2024-02-14] MEDS: SODIUM ZIRCONIUM CYCLOSILICATE (LOKELMA) 5 GM PACKET PO ONE (16:05)
[2024-02-14] MEDS ORDERED: ACETAMINOPHEN 325 MG TABLET (FP) PO PRN (16:09)
[2024-02-14] MEDS: guaiFENesin 600 MG TABLET.ER (FP) PO ONE (21:47)
[2024-02-14] MEDS: TACROLIMUS 0.5 MG CAPSULE PO SCH (21:47)
[2024-02-14] MEDS: ATORVASTATIN CA 20 MG TABLET (FP) PO SCH (21:47)
[2024-02-14] MEDS: HEPARIN NA (PORCINE) 5,000 UNITS/ML 1ML VIAL SQ SCH (21:47)
[2024-02-15 06:16] LABS: BASO % 0.4 % (0-2.0); EOS % 4.1 % (0-4.5); HEMATOCRIT 38.3 % (32.4-45.2); HEMOGLOBIN 11.7 GM/dL (10.7-15.3); LYMPH % 36.4 % (8-40); MCH 23.3 pg (25.7-33.7); MCHC 30.6 g/dl (32.0-36.0); MEAN CELL VOLUME 76.3 fl (80-96); MONO % 5.6 % (3.8-10.2); NEUT % 53.5 % (42.8-82.8); PLATELET COUNT 273 10^3/uL (134-434); RBC 5.02 M/mm3 (3.60-5.2); RDW 16.8 % (11.6-15.6); WHITE BLOOD COUNT 7.9 K/mm3 (4.0-10.0)
[2024-02-15] MEDS: LEVOTHYROXINE NA 88 MCG TABLET (FP) PO SCH (06:29)
[2024-02-15 08:41] LABS: POTASSIUM 5.6 mmol/L (3.5-5.1)
[2024-02-15 08:43] LABS: CALCIUM 8.3 mg/dL (8.5-10.1)
[2024-02-15 08:44] LABS: BLOOD UREA NITROGEN 24.4 mg/dL (7-18); MAGNESIUM 2.5 mg/dL (1.8-2.4)
[2024-02-15 08:47] LABS: CREATININE 1.6 mg/dL (0.55-1.3)
[2024-02-15] MEDS ORDERED: PATIENT'S OWN MEDICATION (NON-FORMULARY) (Dapagliflozin Propanediol [Farxiga] 5 MG Tablet) PO SCH (10:00)
[2024-02-15] MEDS: amLODIPine BESYLATE 5 MG TABLET (FP) PO SCH (10:04)
[2024-02-15] MEDS: FAMOTIDINE 20 MG TABLET PO SCH (10:05)
[2024-02-15] MEDS ORDERED: INSULIN ASPART SLIDING SCALE (NOVOLOG) 1 VIAL SQ ONE (13:36)
[2024-02-15] MEDS: INSULIN ASPART SLIDING SCALE (NOVOLOG) 1 VIAL SQ SCH (13:41)
[2024-02-15] MEDS ORDERED: BENZOCAINE/MENTHOL 1 EACH LOZENGE MM PRN (14:31)
[2024-02-15] MEDS: SODIUM ZIRCONIUM CYCLOSILICATE (LOKELMA) 5 GM PACKET PO SCH (15:08)
[2024-02-15] MEDS: BENZOCAINE/MENTH/CETYLPYRD CL 1 EACH LOZENGE MM PRN (15:34)
[2024-02-15] MEDS ORDERED: INSULIN ASPART SLIDING SCALE (NOVOLOG) 1 VIAL SQ SCH (16:30)
[2024-02-16 08:24] LABS: POTASSIUM 5.7 mmol/L (3.5-5.1)
[2024-02-16 08:28] LABS: ALBUMIN 3.3 g/dl (3.4-5.0); CALCIUM 9.1 mg/dL (8.5-10.1)
[2024-02-16 08:29] LABS: BLOOD UREA NITROGEN 30.2 mg/dL (7-18)
[2024-02-16 08:32] LABS: CREATININE 1.5 mg/dL (0.55-1.3)
[2024-02-16 08:33] LABS: BILIRUBIN,TOTAL 0.5 mg/dL (0.2-1); TOT PROT 7.4 g/dl (6.4-8.2)
[2024-02-16] MEDS: guaiFENesin 200 MG/10 ML 10 ML UNIT-DOSE CUPS PO PRN (08:36)
[2024-02-16] MEDS: ASPIRIN COATED 81 MG TABLET.EC PO SCH (11:39)
[2024-02-16] MEDS: SODIUM ZIRCONIUM CYCLOSILICATE (LOKELMA) 5 GM PACKET PO SCH (11:40)
[2024-02-16 15:05] VITALS: BMI 30.2
[2024-02-16] MEDS: FLUDROCORTISONE ACETATE 0.1 MG TABLET (FP) PO SCH (20:19)
[2024-02-17] MEDS ORDERED: INSULIN ASPART SLIDING SCALE (NOVOLOG) 1 VIAL SQ ONE (07:05)
[2024-02-17 09:08] LABS: POTASSIUM 4.5 mmol/L (3.5-5.1)
[2024-02-17 09:09] LABS: CALCIUM 8.6 mg/dL (8.5-10.1)
[2024-02-17 09:10] LABS: BLOOD UREA NITROGEN 30.7 mg/dL (7-18)
[2024-02-17 09:13] LABS: CREATININE 1.4 mg/dL (0.55-1.3)
[2024-02-17] MEDS: amLODIPine BESYLATE 5 MG TABLET (FP) PO SCH (10:36)
[2024-02-17 12:02] VITALS: BP 134/67; PULSE 66
[2024-02-17 14:16] VITALS: RESP 18; TEMP 98.1
== END 2024-02-17 15:48 | disposition home or self-care (01) ==
LOC: JER 11:28 → JERBED 16:15 → J4S 18:30
PROVIDERS: ADMIT Internal Medicine; ATTEND Internal Medicine
PROC: 3E033NZ Introduction of Analgesics, Hypnotics, Sedatives into Peripheral Vein, Percutaneous Approach (ICD-10-PCS; principal; 2024-02-14)
PROC: 3E013VG Introduction of Insulin into Subcutaneous Tissue, Percutaneous Approach (ICD-10-PCS; 2024-02-14)
PROC: 3E033GC Introduction of Other Therapeutic Substance into Peripheral Vein, Percutaneous Approach (ICD-10-PCS; 2024-02-14)
PROC: 3E0337Z Introduction of Electrolytic and Water Balance Substance into Peripheral Vein, Percutaneous Approach (ICD-10-PCS; 2024-02-14)
DX: E11.649 Type 2 diabetes mellitus with hypoglycemia without coma (principal); K22.9 Disease of esophagus, unspecified; I10 Essential (primary) hypertension; E78.5 Hyperlipidemia, unspecified; R05.3 Chronic cough; Z94.4 Liver transplant status; N17.9 Acute kidney failure, unspecified; E87.5 Hyperkalemia; K21.9 Gastro-esophageal reflux disease without esophagitis; Z86.19 Personal history of other infectious and parasitic diseases
CPT/HCPCS: 0241U-QW; 36415; 70450-TC; 71045-TC-FY; 76775-TC; 76856-TC; 80048; 80053; 80197; 81003; 82962; 83036; 83690; 83735; 84484; 85025; 85027; 87086; 93005; 93010; 93306-TC; 93880-TC; 96372; 96374; 96375; 97116-GP; 97161-GP; 99285-25; G0378; J0131; J1644

== ENCOUNTER 2024-03-03 23:22 | Emergency (ER) | payer OTHER ==
[2024-03-04 00:11] LABS: INR 0.9 (0.83-1.09); PROTHROMBIN TIME (PATIENT) 10.2 SEC (9.7-13.0)
[2024-03-04 00:12] LABS: CHLORIDE 109 mmol/L (98-107); POTASSIUM 4.7 mmol/L (3.5-5.1); SODIUM 139 mmol/L (136-145)
[2024-03-04 00:14] LABS: ACTIVATED PTT 34.4 SECONDS (25.2-36.5); ALBUMIN 3.5 g/dl (3.4-5.0); ANION GAP 4 mmol/L (4-13); CALCIUM 8.6 mg/dL (8.5-10.1); CO2 25 mmol/L (21-32)
[2024-03-04 00:16] LABS: BLOOD UREA NITROGEN 37.7 mg/dL (7-18); GLUCOSE,RANDOM 170 mg/dL (74-106)
[2024-03-04 00:17] LABS: SGPT/ALT 19 U/L (13-61)
[2024-03-04 00:18] LABS: CREATININE 1.8 mg/dL (0.55-1.3); SGOT/AST 16 U/L (15-37)
[2024-03-04 00:19] LABS: CHOLESTEROL 175 mg/dL (50-200); TOT PROT 7.7 g/dl (6.4-8.2)
[2024-03-04 00:20] LABS: LDL CHOLESTEROL (ONLY SJRH) 85 mg/dL (5-100)
[2024-03-04 00:21] LABS: BILIRUBIN,TOTAL 0.2 mg/dL (0.2-1)
[2024-03-04 00:22] LABS: ALK PHOS 104 U/L (45-117); HDL CHOLESTEROL 58 mg/dL (40-60)
[2024-03-04] MEDS: METOCLOPRAMIDE HCL INJECTION 10 MG/2 ML VIAL IVPB ONE (00:34)
[2024-03-04] MEDS: SODIUM CHLORIDE 1,000 ML IV SCH (00:34)
[2024-03-04 00:47] VITALS: PULSE 75; RESP 18; TEMP 97.5; BMI 29.2
[2024-03-04 00:52] LABS: VENOUS BASE EXCESS -3.3 mmol/L (-2-2); VENOUS O2 SATURATION 76.6 % (70-80); VENOUS PCO2 49.8 mmHg (38-52); VENOUS PH 7.292 (7.310-7.410)
[2024-03-04 01:02] LABS: BASO % 0.2 % (0-2.0); EOS % 3.6 % (0-4.5); HEMATOCRIT 35.2 % (32.4-45.2); HEMOGLOBIN 11.5 GM/dL (10.7-15.3); LYMPH % 16.9 % (8-40); MCH 24.1 pg (25.7-33.7); MCHC 32.7 g/dl (32.0-36.0); MEAN CELL VOLUME 73.7 fl (80-96); MEAN PLT VOLUME 8.6 fl (7.5-11.1); MONO % 3.4 % (3.8-10.2); NEUT % 75.9 % (42.8-82.8); PLATELET COUNT 305 10^3/uL (134-434); RBC 4.77 M/mm3 (3.60-5.2); RDW 16.9 % (11.6-15.6); WHITE BLOOD COUNT 10.4 K/mm3 (4.0-10.0)
[2024-03-04 01:16] LABS: MAGNESIUM 2.3 mg/dL (1.8-2.4)
[2024-03-04 01:19] LABS: PHOSPHOROUS 4.7 mg/dL (2.5-4.9)
[2024-03-04 02:30] LABS: EPI CELLS 3 /uL (0-25.1); HYALINE CASTS 0 /uL (0-3.1); PH,URINE 5.5 (5.0-8.0); URINE APPEARANCE CLEAR; URINE BACTERIA 7 /uL (0-1359); URINE BILIRUBIN NEGATIVE (NEGATIVE); URINE COLOR YELLOW; URINE GLUCOSE (UA) 3+ (NEGATIVE); URINE KETONE NEGATIVE (NEGATIVE); URINE LEUK ESTERASE NEGATIVE (NEGATIVE); URINE NITRITE NEGATIVE (NEGATIVE); URINE PROTEIN 2+ (NEGATIVE); URINE RBC 4 /uL (0-23.9); URINE UROBILINOGEN 0.2 mg/dL (0.2-1.0); URINE WBC 12 /uL (0-25.8)
[2024-03-04 03:14] VITALS: BP 119/62
== END 2024-03-04 05:32 | disposition home or self-care (01) ==
LOC: JER 23:22
DX: G43.909 Migraine, unspecified, not intractable, without status migrainosus (principal); R11.2 Nausea with vomiting, unspecified; R42 Dizziness and giddiness; R10.13 Epigastric pain
CPT/HCPCS: 36415; 70450-TC; 70496-TC; 70498-TC; 74176-TC; 80053; 80061; 81003; 82010; 82550; 82803; 82962; 83036; 83605; 83690; 83735; 84100; 84484; 85025; 85610; 85730; 86850; 86900; 86901; 87086; 93005; 93010; 99285-25; Q9967

== ENCOUNTER 2024-03-18 06:26 | Emergency (ER) | payer OTHER ==
[2024-03-18 06:36] VITALS: TEMP 98.1; BMI 29.0
[2024-03-18] MEDS ORDERED: MAG HYDROX/AL HYDROX/SIMETH 30 ML UNIT-DOSE CUP ONE (07:52)
[2024-03-18] MEDS ORDERED: FAMOTIDINE 20 MG TABLET ONE (07:52)
[2024-03-18] MEDS: FAMOTIDINE 20 MG TABLET PO ONE (08:20)
[2024-03-18] MEDS: MAG HYDROX/AL HYDROX/SIMETH 30 ML UNIT-DOSE CUP PO ONE (08:20)
[2024-03-18 08:33] LABS: BASO % 0.7 % (0-2.0); EOS % 6.5 % (0-4.5); HEMATOCRIT 41.3 % (32.4-45.2); HEMOGLOBIN 13.1 GM/dL (10.7-15.3); LYMPH % 29.3 % (8-40); MCH 23.8 pg (25.7-33.7); MCHC 31.7 g/dl (32.0-36.0); MEAN PLT VOLUME 8.1 fl (7.5-11.1); MONO % 4.8 % (3.8-10.2); NEUT % 58.7 % (42.8-82.8); PLATELET COUNT 312 10^3/uL (134-434); RBC 5.51 M/mm3 (3.60-5.2); RDW 16.9 % (11.6-15.6); WHITE BLOOD COUNT 9.7 K/mm3 (4.0-10.0)
[2024-03-18 08:48] LABS: POTASSIUM 4.7 mmol/L (3.5-5.1)
[2024-03-18 08:50] LABS: CALCIUM 9.2 mg/dL (8.5-10.1)
[2024-03-18 08:52] LABS: BLOOD UREA NITROGEN 32.7 mg/dL (7-18); MAGNESIUM 2.4 mg/dL (1.8-2.4)
[2024-03-18 08:53] LABS: CREATININE 1.8 mg/dL (0.55-1.3)
[2024-03-18 08:55] LABS: BILIRUBIN,TOTAL 0.5 mg/dL (0.2-1); TOT PROT 8.8 g/dl (6.4-8.2)
[2024-03-18] MEDS: SODIUM CHLORIDE 0.9% 500 ML INFUS.BAG IV ONE ×2 (09:13→10:30)
[2024-03-18] MEDS ORDERED: ACETAMINOPHEN INJECTION 100 ML ONE (10:44)
[2024-03-18] MEDS: ACETAMINOPHEN 1000 MG/100 ML BAG IVPB ONE (10:48)
[2024-03-18 11:07] VITALS: BP 150/75; PULSE 81; RESP 16
== END 2024-03-18 11:35 | disposition home or self-care (01) ==
LOC: JER 06:26
PROC: 3E033NZ Introduction of Analgesics, Hypnotics, Sedatives into Peripheral Vein, Percutaneous Approach (ICD-10-PCS; principal; 2024-03-18)
DX: R10.13 Epigastric pain (principal); M54.9 Dorsalgia, unspecified; B02.29 Other postherpetic nervous system involvement
CPT/HCPCS: 36415; 74176-TC; 76705-TC; 80053; 83690; 83735; 84484; 85025; 93005; 93010; 99285-25; J0131

== ENCOUNTER 2025-01-23 10:21 | Emergency (ER) | payer OTHER ==
[2025-01-23 10:36] VITALS: BP 135/50; PULSE 69; RESP 18; TEMP 97.7; BMI 29.2
[2025-01-23] MEDS ORDERED: MAG HYDROX/AL HYDROX/SIMETH 30 ML UNIT-DOSE CUP ONE (11:53)
[2025-01-23] MEDS ORDERED: FAMOTIDINE 20 MG/50 ML IVPB 20 MG/50 ML MG IVPB ONE (11:53)
[2025-01-23] MEDS: MAG HYDROX/AL HYDROX/SIMETH 30 ML UNIT-DOSE CUP PO ONE (12:10)
[2025-01-23] MEDS: FAMOTIDINE 20 MG/50 ML IVPB 20 MG/50 ML MG IVPB ONE (12:10)
[2025-01-23 12:33] LABS: ABSOLUTE IMMATURE GRANULOCYTES 0.04 x10^3/uL (0.0-0.031); BASOPHILS # 0.04 x10^3/uL (0.01-0.08); EOSINOPHIL % 3.8 % (0.7-5.8); EOSINOPHILS # 0.32 x10^3/uL (0.04-0.36); MCHC 30.3 g/dl (32.2-35.5); MEAN CELL VOLUME 79.2 fl (79.4-94.8); MEAN PLT VOLUME 10.4 fl (9.4-12.3); MONOCYTE # 0.46 x10^3/uL (0.24-0.86); MONOCYTE % 5.4 % (4.7-12.5); RDW 13.5 % (12.4-16.6)
[2025-01-23 12:59] LABS: GLUCOSE,RANDOM 246.0 mg/dL (74-106); TOT PROT 7.6 g/dl (6.4-8.2)
[2025-01-23 13:00] LABS: CO2 26.0 mmol/L (21-32)
[2025-01-23 13:02] LABS: ALK PHOS 97.0 U/L (40-150)
[2025-01-23 13:04] LABS: SGOT/AST 20.0 U/L (5-34); SGPT/ALT 13.0 U/L (0-55)
[2025-01-23 13:05] LABS: CREATININE 1.89 mg/dL (0.55-1.3)
[2025-01-23] MEDS: SODIUM CHLORIDE 0.9% 500 ML INFUS.BAG IV ONE (15:28)
[2025-01-24 15:43] LABS: HIV INTERPRETATION NEGATIVE (NEGATIVE)
[2025-01-24 17:02] LABS: HCV DIAGNOSTIC IN-HOUSE W/RFLX REACTIVE (NONREACTIVE)
== END 2025-01-23 15:36 | disposition home or self-care (01) ==
LOC: JER 10:21
PROC: 3E033GC Introduction of Other Therapeutic Substance into Peripheral Vein, Percutaneous Approach (ICD-10-PCS; principal; 2025-01-23)
DX: R07.89 Other chest pain (principal); I12.9 Hypertensive chronic kidney disease with stage 1 through stage 4 chronic kidney disease, or unspecified chronic kidney disease; N18.9 Chronic kidney disease, unspecified; R10.13 Epigastric pain
CPT/HCPCS: 36415; 71045-TC-FY; 74176-TC; 76705-TC; 80053; 82248; 83605; 83690; 83735; 84100; 84484; 85025; 86803; 87389; 87522; 93005; 93010; 96365; 99285-25